=== PATIENT | female | born 1970 | race Caucasian/White ===

== ENCOUNTER 2017-03-13 10:22 | Emergency (ER) | payer MEDICARE, MEDICAID ==
--- NOTE | 2017-03-13 10:41 | Emergency Department Record ---
History of Present Illness - General Chief complaint: Swelling of legs Stated complaint: LEGS SWOLLEN Time Seen by Provider: 03/13/17 10:37 Source: Patient, Family (caregiver) Mode of Arrival: Ambulatory Limitations: No limitations - History of Present Illness Initial comments: 46 yo female presents to ED with a CC of increased swelling to the lower extremities bilaterally resulting in "weeping blisters". Patient's caregiver services home reports history of seizures, denies previous heart or lung problems. History is limited from the patient due to long-standing history of seizures, resides at a skilled nursing. MD Complaint: Extremity swelling Onset/Timin -: Days(s) Location: Bilateral, Lower Leg History of Same: Yes Consistency: Constant - Related Data Home Medications Medication Instructions Recorded Confirmed Last Taken Clobazam [Onfi] 10 mg PO QHS 05/06/16 03/13/17 03/12/17 Diazepam [Valium] 10 mg PO ASDIR PRN 05/06/16 03/13/17 03/13/17 Divalproex Sodium [Depakote] 250 mg PO DAILY 05/06/16 03/13/17 03/13/17 Divalproex Sodium [Depakote] 500 mg PO BID 05/06/16 03/13/17 03/13/17 Folic Acid 1 mg PO DAILY 05/06/16 03/13/17 03/13/17 Lamotrigine 150 mg PO BID 05/06/16 03/13/17 03/13/17 Levothyroxine Sodium [Synthroid] 50 mcg PO DAILY 05/06/16 03/13/17 03/13/17 Multivitamin [Daily Multiple 1 each PO DAILY 05/06/16 03/13/17 03/13/17 Vitamin] Norethindrone-E.estradiol-Iron 1 each PO QAM 05/06/16 03/13/17 03/13/17 [Microgestin Fe 1.5-30 Tab] Sertraline HCl [Zoloft] 100 mg PO DAILY 05/06/16 03/13/17 03/13/17 Sodium Chloride 1 gm PO ASDIR 05/06/16 03/13/17 03/13/17 Clobazam [Onfi] 20 mg PO DAILY 03/13/17 03/13/17 03/13/17 Ergocalciferol (Vitamin D2) 50,000 unit PO WEEKLY 03/13/17 03/13/17 03/10/17 [Vitamin D2] Hydrochlorothiazide [Hctz 12.5MG] 12.5 mg PO DAILY 03/13/17 03/13/17 03/13/17 Ipratropium [place] [Atrovent Hfa] 12.9 gm IH ASDIR 03/13/17 03/13/17 Unknown Allergies Allergy/AdvReac Type Severity Reaction Status Date / Time No Known Drug Allergies Allergy Verified 05/06/16 22:09 Travel Screening - Travel/Exposure Within Last 30 Days Have you traveled within the last 30 days?: No - Travel/Exposure Within Last Year Have you traveled outside the [place] in the last year?: No - Additonal Travel Details Have you been exposed to anyone with a communicable illness?: No - Travel Symptoms Symptom Screening: None Review of Systems ROS unobtainable: Due to mental status Cardiovascular: Reports: Edema Past Medical History - SOCIAL HISTORY Smoking Status: Never smoker Alcohol Use: None Drug Use: None - RESPIRATORY Hx Respiratory Disorders: No - CARDIOVASCULAR Hx Cardio Disorders: No - NEURO Hx Neuro Disorders: Yes Comment:: Epilepsy - GI Hx GI Disorders: No - Hx Genitourinary Disorders: No - ENDOCRINE Hx Endocrine Disorders: Yes Hx Diabetes: No Hx Thyroid Disease: Yes - MUSCULOSKELETAL Hx Musculoskeletal Disorders: No - PSYCH Hx Psych Problems: No Comment:: Mild mental retardation - HEMATOLOGY/ONCOLOGY Hx Hematology/Oncology Disorders: No Family Medical History Any Significant Family History?: No Hx Cancer: Mother, Brother/Sister Physical Exam - General General Appearance: Alert, Cooperative, No acute distress, Other (at baseline mental status per the patient's caregiver) - Head Head exam: Atraumatic, Normocephalic, Normal inspection Head exam detail: negative: Abrasion, Contusion, Huitron's sign, General tenderness, Hematoma, Laceration - Eye Eye exam: Normal appearance. negative: Conjunctival injection, Periorbital swelling, Periorbital tenderness, Scleral icterus - ENT Ear exam: negative: Auricular hematoma, Auricular trauma Nasal Exam: negative: Active bleeding, Discharge, Dried blood, Foreign body Mouth exam: negative: Drooling, Laceration, Muffled voice, Tongue elevation - Neck Neck exam: Normal inspection. negative: Meningismus, Tenderness - Respiratory Respiratory exam: Normal lung sounds bilaterally. negative: Rales, Respiratory distress, Rhonchi, Stridor - Cardiovascular Cardiovascular Exam: Regular rate, Normal rhythm, Normal heart sounds - GI/Abdominal GI/Abdominal exam: Soft. negative: Rebound, Rigid, Tenderness - Rectal Rectal exam: Deferred - exam: Deferred - Extremities Extremities exam: Pedal edema (2-3+ lower extremity edema). negative: Calf tenderness, Tenderness - Back Back exam: Denies: CVA tenderness (R), CVA tenderness (L) - Neurological Neurological exam: Alert. negative: Motor sensory deficit - Psychiatric Psychiatric exam: Normal affect, Normal mood - Skin Skin exam: Normal color. negative: Abrasion Type of lesion: negative: abrasion Course Vital Signs 03/13/17 10:24 Temperature 98.3 F Pulse Rate 86 Respiratory 16 Rate Blood Pressure 125/62 Pulse Ox 98 - Reevaluation(s) Reevaluation #1: 03/13/17 10:41 Patient seen and examined, labs ordered to assess for evidence for renal impairment or CHF. Reevaluation #2: 03/13/17 11:13 Labs reviewed, BNP 780, Sodium 126 (unchanged from 02/10/17 labs). Patient and her caregiver were updated on all result, and symptoms appear c/w peripheral edema. Recommended elevation of the lower extremities as much as possible to reduce lower extremity edema as well as follow-up with the patient's PCP for further evaluation and possible diuretic prescription. Patient appears stable for discharge at this time. Medical Decision Making - Lab Data Result diagrams: 03/13/17 10:44 03/13/17 10:44 Disposition Disposition: Discharge Clinical Impression: Lower extremity edema Disposition: Home, Self-Care Condition: (2) Stable Instructions: Leg Edema (ED) Additional Instructions: Return to ED if your symptoms worsen or if you have any concerns. Elevate lower extremities to reduce lower extremity swelling. Follow-up with your family doctor in 3-5 days for further evaluation of your lower extremity swelling. Forms: Patient Portal Access Time of Disposition:
[2017-03-13 10:50] LABS: BASO % 0.3 % (0-6); GRAN % 42.4 % (47-80); HEMATOCRIT 36.2 % (35.0-47.0); HEMOGLOBIN 12.6 gm/dl (11.6-16.0); MEAN CELL VOLUME 101.7 fl (81-97); MEAN CORPUSCULAR HGB CONC 34.8 g/dl (32-36); MEAN PLATELET VOLUME 9.5 fl (7.4-10.4); MONO % 12.3 % (0-9); PLATELET COUNT 208 K/uL (130-400); RED BLOOD COUNT 3.56 M/uL (3.80-5.40); RED CELL DISTRIBUTION WIDTH 13.5 % (11.5-14.5)
[2017-03-13 10:52] LABS: MEAN CORPUSCULAR HEMOGLOBIN 35.3 pg (27-33)
[2017-03-13 11:02] LABS: ALB/GLOB RATIO 1.2 (1.1-1.8); ALBUMIN 3.5 gm/dL (3.5-5.0); ALKALINE PHOSPHATASE 47 U/L (38-126); ALT/SGPT 20 U/L (9-52); ANION GAP 4.5 (7-16); AST/SGOT 31 U/L (14-36); BILIRUBIN,TOTAL 0.45 mg/dL (0.2-1.3); BLOOD UREA NITROGEN 9 mg/dL (7-17); CARBON DIOXIDE 29.5 mmol/L (22-30); CREATININE 0.8 mg/dL (0.52-1.04); EST GLOMERULAR FILTRATION RATE > 60 ml/min; GLUCOSE,RANDOM 73 mg/dL (70-110); TOTAL PROTEIN 6.4 gm/dL (6.3-8.2)
== END 2017-03-13 11:26 | disposition home or self-care (01) ==
LOC: ER 10:22
DX: R60.0 Localized edema (principal); I50.9 Heart failure, unspecified
CPT/HCPCS: 80053; 83880; 85025; 99283

== ENCOUNTER 2017-09-30 09:24 | Emergency (ER) | payer MEDICARE, MEDICAID ==
--- NOTE | 2017-09-30 09:35 | Emergency Department Record ---
History of Present Illness - General Chief Complaint: Fall Injury Stated Complaint: FELL, HIT HEAD Time Seen by Provider: 09/30/17 09:26 Source: Patient Mode of Arrival: Ambulatory Limitations: Other (Chronic mental imprairment) - History of Present Illness Initial Comments: 47 yo female presents after a fall at 4am. She hit her head. No LOC. The patient has a long history of seizures. She lives in a [facility]. Later in the morning the patient seemed for tired than usual. No seizure today. She denies any other pain. No neck or chest pain. she points to the right upper mid scalp that is tender. No blood thinners. She wears s helmet normally but did not have it on at the time of the fall. Complaint: Fall -: Hour(s) (5) Fall From: Standing When Fall Occurred: 4-6 hours [employer] Fall Witnessed: Yes, by living facility staff Place Fall Occurred: Home, [facility] Loss of Consciousness: None Prolonged Down Time?: No Symptoms Prior to Fall: None Location: Head Severity: Mild Quality: Aching Context: History of frequent falls - [place] Coma Scale Eye Response: (4) Open spontaneously Motor Response: (6) Obeys commands Verbal Response: (5) Oriented Segun Total: 15 - Related Data Home Medications Medication Instructions Recorded Confirmed Last Taken Furosemide [Lasix] 40 mg PO DAILY 09/30/17 09/30/17 09/30/17 Potassium Chloride [Klor-Con] 20 meq PO QHS 09/30/17 09/30/17 09/29/17 Allergies Allergy/AdvReac Type Severity Reaction Status Date / Time No Known Drug Allergies Allergy Verified 09/30/17 09:34 Review of Systems Constitutional: Denies: Chills, Fever, Malaise, Weakness Eyes: Denies: Eye discharge, Eye pain, Photophobia, Vision change ENT: Denies: Congestion, Ear pain, Epistaxis, Throat pain Respiratory: Denies: Cough, Dyspnea, Wheezes Cardiovascular: Denies: Chest pain, Palpitations, Syncope Endocrine: Denies: Fatigue, Polydipsia, Polyuria Gastrointestinal: Denies: Abdominal pain, Diarrhea, Nausea, Vomiting Genitourinary: Denies: Dysuria, Urgency Musculoskeletal: Denies: Arthralgia, Back pain, Myalgia, Neck pain Skin: Denies: Bruising, Change in color, Rash Neurological: Reports: Headache, Seizure (Hx of ). Denies: Confusion, Numbness , Tingling, Tremors, Vertigo, Weakness Psychiatric: Denies: Anxiety Hematological/Lymphatic: Denies: Blood Clots, Easy bleeding, Easy bruising, Swollen glands Past Medical History - SOCIAL HISTORY Smoking Status: Never smoker Drug Use: None - RESPIRATORY Hx Respiratory Disorders: No - CARDIOVASCULAR Hx Cardio Disorders: No - NEURO Hx Neuro Disorders: Yes Comment:: Epilepsy - GI Hx GI Disorders: No - Hx Genitourinary Disorders: No - ENDOCRINE Hx Endocrine Disorders: Yes Hx Diabetes: No Hx Thyroid Disease: Yes - MUSCULOSKELETAL Hx Musculoskeletal Disorders: No - PSYCH Hx Psych Problems: No Comment:: Mild mental retardation - HEMATOLOGY/ONCOLOGY Hx Hematology/Oncology Disorders: No Family Medical History Hx Cancer: Mother, Brother/Sister Physical Exam - General General Appearance: Alert, Cooperative, No acute distress, Other (At her baseline) - Head Head exam: Normocephalic. negative: Atraumatic, Normal inspection Head exam detail: Abrasion, Contusion Image of Face/Head: 1 - tenderness, mild contusion - Eye Eye exam: Normal appearance. negative: Conjunctival injection, Periorbital swelling, Periorbital tenderness, Scleral icterus - ENT ENT exam: Normal exam, Mucous membranes moist Ear exam: Normal external inspection Nasal Exam: Normal inspection Mouth exam: Normal external inspection Teeth exam: Normal inspection Throat exam: Normal inspection - Neck Neck exam: Normal inspection, Full ROM, Other (No pain or tenderness of the neck with palpaiton or movement). negative: Tenderness - Respiratory Respiratory exam: Normal lung sounds bilaterally. negative: Prolonged expiratory, Respiratory distress, Rhonchi, Stridor, Wheezes - Cardiovascular Cardiovascular Exam: Regular rate, Normal rhythm, Normal heart sounds - GI/Abdominal GI/Abdominal exam: Soft. negative: Tenderness - Rectal Rectal exam: Deferred - exam: Deferred - Extremities Extremities exam: Normal inspection, Full ROM, Normal capillary refill. negative: Tenderness - Back Back exam: Reports: Normal inspection, Full ROM. Denies: Muscle spasm, Rash noted, Tenderness - Neurological Neurological exam: Alert, Normal gait, Reflexes normal. negative: Oriented X3 ( baseline) - Psychiatric Psychiatric exam: Normal affect, Normal mood - Skin Skin exam: Dry, Intact, Normal color, Warm Course - Reevaluation(s) Reevaluation #1: 09/30/17 09:35 The patient has isolated tenderness to the scalp HCT ordered given her baseline mental impairment limiting some the clinical evaluation 09/30/17 10:07 The HCT is negative for acute process DC home with head injury instructions 09/30/17 10:08 Disposition Disposition: Discharge Clinical Impression: Contusion of head Qualifiers: Encounter type: initial encounter Contusion of head detail: scalp Qualified Code(s): S00.03XA - Contusion of scalp, initial encounter Disposition: Home, Self-Care Condition: (1) Good Instructions: Head Injury (ED) Additional Instructions: Return for a recheck if Josselin has any new changes or concerns Follow up recheck with her family doctor Forms: Patient Portal Access Time of Disposition: 10:08 Quality - Quality Measures Quality Measures: N/A - Blood Pressure Screening Does Patient Have Any of the Following: No Blood Pressure Classification: Pre-Hypertensive BP Reading Systolic Measurement: 129 Diastolic Measurement: 79 Screening for High Blood Pressure: < Pre-Hypertensive BP, F/U Documented > [ G8950] Pre-Hypertensive Follow-up Interventions: Referral to alternative/primary care provider.
--- NOTE | 2017-09-30 22:26 | CT SCAN REPORT ---
EXAM: CT SCAN HEAD WO CONTRAST HISTORY: INJURY. TECHNIQUE: Sequential axial images were obtained from the foramen magnum to the vertex without contrast administration. FINDINGS: The brain volume is normal. No large territorial infarct, hemorrhage , mass effect, or midline shift. No extraaxial fluid collection. The orbits, paranasal sinuses, and mastoid air cells are normal. IMPRESSION: NO ACUTE INTRACRANIAL ABNORMALITY IS APPRECIATED. JOB NUMBER: [id number] MTDD
== END 2017-09-30 10:24 | disposition home or self-care (01) ==
LOC: ER 09:24
DX: R53.83 Other fatigue (principal); G40.909 Epilepsy, unspecified, not intractable, without status epilepticus; Z91.81 History of falling; W18.30XA Fall on same level, unspecified, initial encounter; Y92.009 Unspecified place in unspecified non-institutional (private) residence as the place of occurrence of the external cause
CPT/HCPCS: 70450; 99283

== ENCOUNTER 2017-12-05 02:23 | Emergency (ER) | payer MEDICARE, MEDICAID ==
--- NOTE | 2017-12-05 02:45 | Emergency Department Record ---
History of Present Illness - General Chief Complaint: Fall Injury Stated Complaint: FALL Time Seen by Provider: 12/05/17 02:39 Source: Family ([employer]) Mode of Arrival: Ambulatory Limitations: No limitations - History of Present Illness Initial Comments: 47 yo female presents to ED for evaluation of fall from bed this morning. Patient has a history of mental retardation and epilepsy, caregiver provides history. Patient points to pain in the mid-back, head, and left little finger on examination. Patient normally wears her helmet when being transferred but was not wearing her helmet when she fell out of bed. Complaint: Fall Onset/Timin -: Hour(s) Fall From: Out of bed When Fall Occurred: 1 hour [employer] Fall Witnessed: No Place Fall Occurred: [facility] Loss of Consciousness: None Prolonged Down Time?: No Symptoms Prior to Fall: None Location: Head, Back Location - Extremities: Left: Hand Severity: Moderate Severity scale (1-10): 6 Associated Symptoms: Denies - Related Data Allergies Allergy/AdvReac Type Severity Reaction Status Date / Time No Known Drug Allergies Allergy Verified 09/30/17 09:34 Travel Screening - Travel/Exposure Within Last 30 Days Have you traveled within the last 30 days?: No - Travel Symptoms Symptom Screening: None Review of Systems ROS unobtainable: Due to mental status, Other Past Medical History - SOCIAL HISTORY Smoking Status: Never smoker - RESPIRATORY Hx Respiratory Disorders: No - CARDIOVASCULAR Hx Cardio Disorders: Yes Hx Edema: Yes (lower extremity) - NEURO Hx Neuro Disorders: Yes Comment:: Epilepsy - GI Hx GI Disorders: No - Hx Genitourinary Disorders: No Comment:: HPV - ENDOCRINE Hx Endocrine Disorders: Yes Hx Diabetes: No Hx Thyroid Disease: Yes - MUSCULOSKELETAL Hx Musculoskeletal Disorders: No - PSYCH Hx Psych Problems: No Comment:: Mild mental retardation - HEMATOLOGY/ONCOLOGY Hx Hematology/Oncology Disorders: No Family Medical History Any Significant Family History?: Yes Hx Cancer: Mother, Brother/Sister Physical Exam - General General Appearance: Alert, Other (at baseline mental statur per caregiver) Limitations: Other - Head Head exam: Normocephalic, Other (Small area of STS to the posterior scalp) Head exam detail: Contusion, General tenderness. negative: Abrasion, Huitron's sign, Hematoma, Laceration - Eye Eye exam: Normal appearance, Periorbital swelling. negative: Conjunctival injection, Periorbital tenderness, Scleral icterus - ENT Ear exam: negative: Auricular hematoma, Auricular trauma Nasal Exam: negative: Active bleeding, Discharge, Dried blood, Foreign body Mouth exam: negative: Drooling, Laceration, Muffled voice, Tongue elevation - Neck Neck exam: Normal inspection. negative: Meningismus, Tenderness - Respiratory Respiratory exam: Normal lung sounds bilaterally. negative: Rales, Respiratory distress, Rhonchi, Stridor - Cardiovascular Cardiovascular Exam: Regular rate, Normal rhythm, Normal heart sounds - GI/Abdominal GI/Abdominal exam: Soft. negative: Rebound, Rigid, Tenderness - Rectal Rectal exam: Deferred - exam: Deferred - Extremities Extremities exam: Tenderness, Other (TTP over the left little digit/metacarpal on examination). negative: Calf tenderness, Pedal edema - Back Back exam: Reports: Tenderness (TTP along the thoracic spine in the midline). Denies: CVA tenderness (R), CVA tenderness (L), Paraspinal tenderness - Neurological Neurological exam: Alert. negative: Motor sensory deficit - Psychiatric Psychiatric exam: Normal affect, Normal mood - Skin Skin exam: Normal color. negative: Abrasion Type of lesion: negative: abrasion Course Vital Signs 12/05/17 02:28 Temperature 99.3 F Pulse Rate 76 Respiratory 18 Rate Blood Pressure 139/70 Pulse Ox 97 - Reevaluation(s) Reevaluation #1: 12/05/17 03:27 CT Brain: Ventriculomegaly, nothing acute Left hand: Nothing acute Thoracic Spine: No acute process Reevaluation #2: 12/05/17 03:42 patient and her caregiver were updated on all results, appears stable for discharge at this time. Disposition Disposition: Discharge Clinical Impression: Multiple contusions, Fall from bed, initial encounter Disposition: Home, Self-Care Condition: (2) Stable Instructions: Contusion in Adults (ED) Additional Instructions: Return to ED if your symptoms worsen or if you have any concerns. Follow-up with your family doctor in 3-5 days as directed. Forms: Patient Portal Access Time of Disposition: 03:42 Quality - Quality Measures Quality Measures: N/A - Blood Pressure Screening Does Patient Have Any of the Following: No Blood Pressure Classification: Pre-Hypertensive BP Reading Systolic Measurement: 139 Diastolic Measurement: 70 Screening for High Blood Pressure: < Pre-Hypertensive BP, F/U Documented > [ G8950] Pre-Hypertensive Follow-up Interventions: Referral to alternative/primary care provider.
[2017-12-05] MEDS ORDERED: ACETAMINOPHEN 500 MG TABLET PO ONE (03:26)
--- NOTE | 2017-12-05 08:13 | RADIOLOGY REPORT ---
EXAM: LEFT HAND COMPLETE HISTORY: PAIN POST FALL. TECHNIQUE: Three views of the left hand were obtained. Comparison: None. Encounter: Initial. FINDINGS: The examination is mildly limited due to suboptimal positioning due to patient condition. There is diffuse osteopenia. No acute fracture, dislocation, or destructive bone lesion is identified. There are mild osteoarthritic changes scattered throughout the hand and lateral aspect of the wrist. No periarticular erosion. No focal soft tissue abnormality. IMPRESSION: 1. MILDLY LIMITED EXAMINATION. 2. OSTEOPENIA. 3. NO ACUTE FRACTURE NOR DISLOCATION IDENTIFIED. MILD DEGENERATIVE CHANGES. JOB NUMBER: [id number] MTDD
--- NOTE | 2017-12-05 08:25 | CT SCAN REPORT ---
EXAM: CT OF THE HEAD WITHOUT CONTRAST HISTORY: FALL. POSSIBLE HEAD INJURY. TECHNIQUE: Routine noncontrast CT examination of the head was obtained. Comparison: CT head without contrast dated 09/30/17. FINDINGS: The subarachnoid spaces are mildly to moderately dilated associated with mild ventriculomegaly, stable. No definite new area of abnormally increased or decreased attenuation is noted throughout the brain substance. No new abnormal extraaxial fluid collection is seen. No skull fracture is identified. The visualized paranasal sinuses and mastoid air cells are clear with the exception of minimal mucosal thickening within the maxillary sinuses. The orbits as visualized are unremarkable. Chronic appearing deformities of the nasal bones. There is leftward deviation of the osseous nasal septum. IMPRESSION: 1. NO CT EVIDENCE OF AN ACUTE INTRACRANIAL ABNORMALITY NOR SKULL FRACTURE. 2. MINOR MUCOSAL THICKENING WITHIN THE MAXILLARY SINUSES. 3. CHRONIC APPEARING DEFORMITIES OF THE NASAL BONES. JOB NUMBER: [id number] MTDD
--- NOTE | 2017-12-05 08:31 | RADIOLOGY REPORT ---
EXAM: THORACIC SPINE, AP AND LATERAL VIEWS HISTORY: BACK PAIN POST FALL PER [employer]. TECHNIQUE: AP and lateral views of the thoracic spine were obtained as well as a lateral swimmer's view of the cervicothoracic junction and a spot lateral view of the thoracolumbar junction. Comparison: Two view chest radiographic examination dated 01/06/16. FINDINGS: There is diffuse osteopenia. No acute fracture nor subluxation. There is mild dextrocurvature of the thoracic spine centered at the mid levels. The vertebral bodies are otherwise normal in alignment. The thoracic vertebral bodies are normal in height. Mild anterior wedging of what is likely L2 has a chronic appearance. Multilevel degenerative disk/degenerative end plate changes are identified most pronounced at the L1-L2 and L2-L3 levels where the changes are moderate in degree. A left sided vagus nerve stimulator is in place. IMPRESSION: 1. OSTEOPENIA. 2. NO DEFINITE ACUTE FRACTURE NOR SUBLUXATION. 3. MINOR ANTERIOR WEDGING OF WHAT IS LIKELY THE L2 VERTEBRAL BODY APPEARING CHRONIC. 4. MULTILEVEL DEGENERATIVE CHANGES ASSOCIATED WITH MINOR DEXTROCONVEX SCOLIOSIS OF THE THORACIC SPINE. JOB NUMBER: [id number] [facility]
== END 2017-12-05 04:00 | disposition home or self-care (01) ==
LOC: ER 02:23
DX: S60.222A Contusion of left hand, initial encounter (principal); S00.93XA Contusion of unspecified part of head, initial encounter; S20.229A Contusion of unspecified back wall of thorax, initial encounter; F70 Mild intellectual disabilities; G40.909 Epilepsy, unspecified, not intractable, without status epilepticus; W06.XXXA Fall from bed, initial encounter; Y92.122 Bedroom in nursing home as the place of occurrence of the external cause
CPT/HCPCS: 70450; 72072; 99283; 99284

== ENCOUNTER 2018-04-08 10:41 | Emergency (ER) | payer MEDICARE, MEDICAID ==
--- NOTE | 2018-04-08 11:40 | Emergency Department Record ---
History of Present Illness - General Chief Complaint: Ankle/Foot Injury Stated Complaint: L FOOT INJURY Time Seen by Provider: 04/08/18 11:35 Source: Patient, Family Mode of Arrival: Ambulatory Limitations: No limitations - History of Present Illness Initial Comments: The patient is here due to L foot and ankle pain. She fell last night but did not tell anyone. She is developmentally delayed and lives in a correction. The patient denies any knee or leg pain. MD Complaint: Foot injury Onset/Timin -: Days(s) Type of Injury: Unknown Place: Home Improves With: Nothing Worsens With: Nothing Associated Symptoms: Ambulatory - Related Data Allergies Allergy/AdvReac Type Severity Reaction Status Date / Time No Known Drug Allergies Allergy Verified 09/30/17 09:34 Travel Screening - Travel/Exposure Within Last 30 Days Have you traveled within the last 30 days?: No Review of Systems Constitutional: Denies: Chills, Fever Eyes: Denies: Eye discharge ENT: Denies: Congestion Respiratory: Denies: Cough, Dyspnea Past Medical History - SOCIAL HISTORY Smoking Status: Never smoker Alcohol Use: None Drug Use: None - RESPIRATORY Hx Respiratory Disorders: No - CARDIOVASCULAR Hx Cardio Disorders: Yes Hx Edema: Yes (lower extremity) - NEURO Hx Neuro Disorders: Yes Comment:: Epilepsy - GI Hx GI Disorders: No - Hx Genitourinary Disorders: No Comment:: HPV - ENDOCRINE Hx Endocrine Disorders: Yes Hx Diabetes: No Hx Thyroid Disease: Yes - MUSCULOSKELETAL Hx Musculoskeletal Disorders: No - PSYCH Hx Psych Problems: No Comment:: Mild mental retardation - HEMATOLOGY/ONCOLOGY Hx Hematology/Oncology Disorders: No Family Medical History Any Significant Family History?: Yes Hx Cancer: Mother, Brother/Sister Physical Exam - General General Appearance: Alert, Oriented x3, Cooperative, No acute distress - Head Head exam: Atraumatic, Normocephalic - Eye Eye exam: Normal appearance, PERRL, EOMI - Extremities Extremities exam: Full ROM, Normal capillary refill, Tenderness (There is diffuse tenderness to the foot.). negative: Normal inspection (There is bruising to the lat malleolus and dorsal proximal foot.), Joint swelling Course Vital Signs 04/08/18 11:28 Temperature 98.7 F Pulse Rate [ 83 Pulse Ox Probe] Respiratory 16 Rate Blood Pressure 102/58 [Left Arm] Pulse Ox 97 - Reevaluation(s) Reevaluation #1: I did discuss the neg xrays with the patient and staff and the need for F/U if not better. 04/08/18 12:15 Medical Decision Making - Data Complexity MDM Data: X-Ray Ordered and/or Reviewed - Radiology Data Radiology results: Report reviewed (Xrays Neg per Rad.) Disposition Disposition: Discharge Clinical Impression: Sprain of foot, left Qualifiers: Encounter type: initial encounter Qualified Code(s): S93.602A - Unspecified sprain of left foot, initial encounter Disposition: Home, Self-Care Condition: (2) Stable Instructions: Foot Sprain (ED) Additional Instructions: Please see your family doctor for recheck in 4-5 days if not better. Wear the beto wrap for 5 days and use Tylenol for pain. Return to the ER for any worsening symptoms. Forms: Patient Portal Access Time of Disposition: 12:16 Quality - Quality Measures Quality Measures: N/A - Blood Pressure Screening View Details: Yes Does Patient Have Any of the Following: No Blood Pressure Classification: Normal BP Reading Systolic Measurement: 102 Diastolic Measurement: 58 Screening for High Blood Pressure: < Normal BP, F/U Not Required > [G8783]
--- NOTE | 2018-04-10 10:45 | RADIOLOGY REPORT ---
EXAM: LEFT ANKLE HISTORY: STATUS POST FALL. LATERAL BRUISING. TECHNIQUE: Three views of the left ankle were obtained. Comparison: Left foot series from the same date. Encounter: Initial. FINDINGS: The bones appear intact. There is no visible acute fracture or dislocation. The ankle mortise is intact. No focal soft tissue abnormalities are identified. IMPRESSION: NO ACUTE FRACTURE IDENTIFIED. JOB NUMBER: [id number] MTDD
--- NOTE | 2018-04-10 10:56 | RADIOLOGY REPORT ---
EXAM: LEFT FOOT HISTORY: LATERAL PAIN AND BRUISING STATUS POST FALL. TECHNIQUE: Four views of the left foot were obtained. Comparison: Left ankle series from the same date. FINDINGS: The bones appear intact. There is no visible fracture or dislocation. The bones are osteopenic. Hallux valgus deformity is present. IMPRESSION: NO ACUTE FOOT PATHOLOGY IDENTIFIED. JOB NUMBER: [id number] MTDD
== END 2018-04-08 12:37 | disposition home or self-care (01) ==
LOC: ER 10:41
DX: S93.602A Unspecified sprain of left foot, initial encounter (principal); W18.30XA Fall on same level, unspecified, initial encounter; Y93.9 Activity, unspecified; G40.909 Epilepsy, unspecified, not intractable, without status epilepticus; E03.9 Hypothyroidism, unspecified; F70 Mild intellectual disabilities
CPT/HCPCS: 99283